=== PATIENT | female | born 1985 | race Asian ===

== ENCOUNTER → 2016-12-13 | Outpatient (CLI) | payer BC ==
--- NOTE | 2016-12-13 15:59 | DIAGNOSTIC IMAGING REPORT ---
CHEST 2 VIEWS ROUTINE CLINICAL HISTORY: Positive TB test COMPARISON STUDY: No previous studies for comparison. FINDINGS: The cardiac and mediastinal contours are normal. There is no evidence of focal pulmonary consolidation. There is no evidence of failure. No pleural effusions are visualized.[ No granulomatous calcifications are visualized. There is no conventional radiographic evidence of adenopathy. There are bilateral nipple shadows present. IMPRESSION: No active disease in the chest. Electronically signed by: Raymond Browning M.D. 12/13/2016 3:57 PM Dictated Date/Time: 12/13/2016 3:56 PM
== END | disposition home or self-care (01) ==
LOC: C.RAD1850 15:40
PROVIDERS: ATTEND Nurse Practitioner
DX: R76.12 Nonspecific reaction to cell mediated immunity measurement of gamma interferon antigen response without active tuberculosis (principal)